=== PATIENT | male | born 1970 | race Hispanic/Latino ===

== ENCOUNTER 2022-08-25 01:53 | Emergency (ER) | payer OTHER ==
[~2022-08-25] VITALS: Ht 243.8 cm; Wt 74.8 kg
[2022-08-25 01:57] VITALS: BP 143/88
[2022-08-25] MEDS ORDERED: MORPHINE 4 MG SYG IVP ONE (02:30)
[2022-08-25] MEDS ORDERED: ONDANSETRON 4MG INJ IVP ONE (02:30)
[2022-08-25 02:31] LABS: CREATININE 1.4 mg/dL (0.5-1.5); POTASSIUM 4.2 mmol/L (3.5-5.1)
[2022-08-25 02:31] LABS: APPEARANCE,URINE CLEAR (CLEAR); BILIRUBIN,URINE NEGATIVE (NEGATIVE); GLUCOSE, URINE (UA) NEGATIVE (NEGATIVE); KETONES,URINE NEGATIVE (NEGATIVE); LEUKOCYTE ESTERASE ,URINE NEGATIVE Leu/uL (NEGATIVE); NITRATE,URINE NEGATIVE (NEGATIVE); OCCULT BLOOD,URINE NEGATIVE (NEGATIVE); PROTEIN,URINE NEGATIVE (NEGATIVE); UROBILINOGEN,URINE 0.2 mg/dL (0.2-1.0)
[2022-08-25 02:33] LABS: BASOPHILS % (AUTO) 0.5 % (0.0-5.0); EOSINOPHILS % (AUTO) 0.2 % (0.0-8.0); HEMATOCRIT 35.1 % (42-54); LYMPHOCYTES % (AUTO) 11.6 % (21.0-51.0); MEAN CORPUSCULAR HEMOGLOBIN 30.3 pg (27.0-33.0); MEAN CORPUSCULAR HGB CONC 33.3 g/dL (32.0-36.0); MEAN CORPUSCULAR VOLUME 90.9 fL (79-99); MONOCYTES % (AUTO) 9.1 % (3.0-13.0); NEUTROPHILS % (AUTO) 78.4 % (40.0-77.0); PLATELET COUNT (AUTO) 236 K/uL (130-400); RED BLOOD CELL COUNT(AUTO) 3.86 MIL/uL (4.50-6.20); RED CELL DISTRIBUTION WIDTH 14.1 % (11.0-15.5); WHITE BLOOD COUNT (AUTO) 8.6 K/uL (4.8-10.8)
[2022-08-25 02:35] LABS: ALBUMIN 4.4 g/dL (3.5-5.0); TOTAL PROTEIN, SERUM 7.7 g/dL (6.0-8.3)
[2022-08-25 02:35] LABS: COLOR,URINE Light-Yellow (YELLOW)
[2022-08-25] MEDS ORDERED: MAG/ALUM/SIMETH 30 ML UDCUP ONE (03:24)
[2022-08-25] MEDS ORDERED: LIDOCAINE HCL 2% VISCOUS 15 ML UDCUP ONE (03:24)
[2022-08-25] MEDS ORDERED: LIDOCAINE HCL 2% VISCOUS 15 ML UDCUP PO ONE (03:30)
[2022-08-25] MEDS ORDERED: HALOPERIDOL INJ 5 MG/ML VIAL IV SCH (03:30)
[2022-08-25] MEDS ORDERED: DICYCLOMINE HCL 10 MG/5 ML ML PO SCH (03:30)
[2022-08-25] MEDS ORDERED: MAG/ALUM/SIMETH 30 ML UDCUP PO ONE (03:30)
[2022-08-25] MEDS ORDERED: IOHEXOL-350 75 ML VIAL IV ONE (03:55)
[2022-08-25] MEDS ORDERED: LIDOCAINE HCL-MPF 2% 5ML VIAL ONE (05:20)
[2022-08-25] MEDS ORDERED: TAMS-1 PO (05:54)
[2022-08-25] MEDS ORDERED: IBUP-1493 PO (05:54)
[2022-08-25] MEDS ORDERED: ONDA-104 PO (05:55)
== END 2022-08-25 05:58 | disposition home or self-care (01) ==
LOC: EDH 01:53
DX: N20.0 Calculus of kidney (principal); Z98.84 Bariatric surgery status; Z79.899 Other long term (current) drug therapy
CPT/HCPCS: 99285; 74177; 96374; 96375; 80053; 83690; 85025; 81003; 36415; J1630; J2405; J2270; J3490; Q9967